=== PATIENT | female | born 2000 | race Two or more races ===

== ENCOUNTER 2023-04-23 17:42 | Emergency (ER) | payer MEDICAID ==
[~2023-04-23] VITALS: Ht 154.9 cm; Wt 70.7 kg
[2023-04-23 19:41] LABS: BASOPHILS % (AUTO) 0.3 % (0.0-2.0); EOSINOPHILS % (AUTO) 1.8 % (1.0-6.0); HEMATOCRIT 38.2 % (36-46); HEMOGLOBIN 12.2 g/dL (12.0-16.0); LYMPHOCYTES # (AUTO) 3.4 K/uL (1.0-4.8); MEAN CORPUSCULAR HEMOGLOBIN 26.6 pg (26.0-34.0); MEAN CORPUSCULAR VOLUME 83 fL (80-100); MONOCYTES # (AUTO) 0.6 K/uL (0.1-1.0); MONOCYTES % (AUTO) 6.3 % (2.0-9.0); NEUTROPHILS # (AUTO) 5.2 K/uL (1.8-7.7); NEUTROPHILS % (AUTO) 55.6 % (40.0-70.0); PLATELET COUNT (AUTO) 327 K/uL (150-450); RED BLOOD CELL COUNT(AUTO) 4.58 MIL/uL (4.00-5.20); RED CELL DISTRIBUTION WIDTH 14.1 % (11.5-14.5); WHITE BLOOD COUNT (AUTO) 9.3 K/uL (4.5-11.0)
[2023-04-23 19:46] LABS: ANION GAP 11 mmol/L (8-16); CALCIUM, TOTAL 9.2 mg/dL (8.8-10.5); CARBON DIOXIDE 25 mmol/L (22-29); CHLORIDE 103 mmol/L (98-107); CREATININE 0.52 mg/dL (0.60-1.30); GLOMERULAR FILTR. RATE CALC > 60 mL/min (>60); GLUCOSE,RANDOM 87 mg/dL (70-110); POTASSIUM 3.9 mmol/L (3.5-5.1); SODIUM SERUM 139 mmol/L (136-145); UREA NITROGEN, BLOOD 11 mg/dL (7-18)
[2023-04-23 19:57] LABS: ALANINE AMINOTRANSFERASE 52 U/L (12-78); ALBUMIN 3.8 g/dL (3.4-5.0); ALKALINE PHOSPHATASE 56 U/L (46-116); ASPARTATE AMINOTRANSFERASE 34 U/L (15-37); BILIRUBIN,TOTAL 0.3 mg/dL (0.1-1.0); HCG,QUANTITATIVE < 1 mIU/mL (0-6); LIPASE 30 U/L (16-77); TOTAL PROTEIN, SERUM 7.5 g/dL (6.4-8.2)
[2023-04-23 22:03] LABS: APPEARANCE,URINE CLEAR (CLEAR); BILIRUBIN,URINE NEGATIVE (NEGATIVE); COLOR,URINE LIGHT YELLOW (YELLOW); GLUCOSE, URINE (UA) NEGATIVE (NEGATIVE); KETONES,URINE NEGATIVE (NEGATIVE); LEUKOCYTE ESTERASE ,URINE NEGATIVE (NEGATIVE); NITRATE,URINE NEGATIVE (NEGATIVE); OCCULT BLOOD,URINE NEGATIVE (NEGATIVE); PROTEIN,URINE NEGATIVE (NEGATIVE); SPECIFIC GRAVITIY, URINE 1.021 (1.003-1.030); UROBILINOGEN,URINE <=1.0 mg/dL (<=1.0)
[2023-04-23] MEDS ORDERED: PB/HYOSCY/ATR/SCOP/LIDO/MAALOX 55 ML BOTTLE PO ONE (23:15)
[2023-04-23] MEDS ORDERED: FAMO20 PO (23:26)
[2023-04-23 23:43] VITALS: BP 127/74; PULSE 74; RESP 16; TEMP 97.3
== END 2023-04-24 00:12 | disposition home or self-care (01) ==
LOC: EMS 17:45
DX: R10.13 Epigastric pain (principal); K85.90 Acute pancreatitis without necrosis or infection, unspecified; Z90.49 Acquired absence of other specified parts of digestive tract
CPT/HCPCS: 80053; 81003; 83690; 84702; 85025; 99283

== ENCOUNTER 2024-12-03 12:16 | Emergency (ER) | payer MEDICAID ==
[~2024-12-03] VITALS: Ht 154.9 cm; Wt 72.0 kg
[~2024-12-03 12:16] MED LIST: FAMO20 PO
[2024-12-03 12:33] VITALS: BP 107/69; PULSE 78; RESP 16; TEMP 98.2; O2SAT 98
[2024-12-03] MEDS ORDERED: CLIN-142 PO (12:35)
[2024-12-03] MEDS ORDERED: [UNRECOGNIZED DRUG - OTHER] PO (12:35)
== END 2024-12-03 14:51 | disposition home or self-care (01) ==
LOC: EMS 12:18
DX: L02.212 Cutaneous abscess of back [any part, except buttock and flank] (principal); Z87.19 Personal history of other diseases of the digestive system; Z90.49 Acquired absence of other specified parts of digestive tract
CPT/HCPCS: 99281; Z7502

== ENCOUNTER 2024-12-09 12:53 | Emergency (ER) | payer MEDICAID ==
[~2024-12-09] VITALS: Ht 154.9 cm; Wt 70.5 kg
[~2024-12-09 12:53] MED LIST changes: +CLIN-142 PO; -FAMO20 PO; +[UNRECOGNIZED DRUG - OTHER] PO
[2024-12-09 13:13] VITALS: TEMP 98.1
[2024-12-09 13:43] VITALS: BP 110/73; PULSE 75; RESP 19; O2SAT 100
== END 2024-12-09 13:58 | disposition home or self-care (01) ==
LOC: EMS 12:53
DX: S21.211D Laceration without foreign body of right back wall of thorax without penetration into thoracic cavity, subsequent encounter (principal); Z87.19 Personal history of other diseases of the digestive system; Z90.49 Acquired absence of other specified parts of digestive tract; X58.XXXD Exposure to other specified factors, subsequent encounter
CPT/HCPCS: 99281; Z7502